=== PATIENT | male | born 2000 | race American Indian/Alaskan Native ===

== ENCOUNTER 2020-09-13 19:11 | Emergency (ER) | payer MEDICAID, OTHER ==
[2020-09-13] MEDS ORDERED: ACETAMINOPHEN 325 MG TAB PO ONE (23:22)
--- NOTE | 2020-09-13 23:53 | XRay Report ---
LEFT HUMERUS 3 VIEWS INDICATION / CLINICAL INFORMATION: laceration to L upper arm COMPARISON: None available. FINDINGS: BONES and JOINT(S): No acute fracture or subluxation. No significant arthritis. SOFT TISSUES: No distinct laceration or other significant abnormalities. ADDITIONAL FINDINGS: None. IMPRESSION: 1. No acute findings. Signer Name: Desmond Christine MD Signed: 09/13/2020 11:49 PM Workstation Name: [id number]
[2020-09-14 01:25] VITALS: BP 153/91
[2020-09-14] MEDS ORDERED: IBUPROFEN 600 MG TAB PO ONE (01:51)
[2020-09-14] MEDS ORDERED: HYDROcodone/ACETAMINOPHEN 5-325 MG TAB PO ONE (01:51)
[2020-09-14] MEDS ORDERED: ONDANSETRON 4 MG ODT TAB PO ONE (01:51)
[2020-09-14] MEDS ORDERED: LIDOCAINE-MPF (1%) 10 MG/1 ML VIAL 5 ML INFILTRATI ONE (01:51)
--- NOTE | 2020-09-14 02:33 | Emergency Department Report ---
ED Upper Extremity Inj HPI - General Chief Complaint: Wound/Laceration Stated Complaint: LARGE LAC TO ARM Source: patient Mode of arrival: Ambulatory Limitations: No Limitations - History of Present Illness Initial Comments: Patient is a 19-year-old -[place] male with past medical history of asthma who presents to the ED with complaint of acute onset persistent painful left upper arm bleeding puncture wound after a piece of glass punctured his left upper arm when moving some objects, and when he forgot and hit his left upper arm against the sharp edge of the glass about 6 hours ago. Patient states that the pain and bleeding has been persistent and intermittent. Patient states that the bleeding is not well controlled but the pain has been persistent leading to numbness and tingling of left arm. Patient states that he is up-to-date with all his tetanus vaccinations. Patient denies dizziness, syncope, fall, neck pain, chest pain, shortness of breath, headache, nausea and vomiting or back pain. MD Complaint: Injury to:: left, arm (Left upper arm puncture wound) -: Sudden, hour(s) (6) Other Extremity Injury: Arm: Left (Left upper arm bleeding painful puncture wound) Other Injuries: none Place: home Severity scale (0 -10): 7 Improves With: none Worsens With: movement of extremity Context: direct blow, laceration, injury Associated Symptoms: denies other symptoms. denies: weakness, numbness, neck pain, suspects foreign body, nausea/vomiting, heard/felt popping sensat - Related Data Previous Rx's Medication Instructions Recorded Last Taken Type Ibuprofen [Motrin] 800 mg PO Q8HR PRN #30 tablet 09/14/20 Unknown Rx cephALEXin [Keflex] 500 mg PO Q8HR #30 cap 09/14/20 Unknown Rx Allergies Allergy/AdvReac Type Severity Reaction Status Date / Time No Known Allergies Allergy Unverified 09/13/20 23:15 ED Review of Systems ROS: Stated complaint: LARGE LAC TO ARM Other details as noted in HPI Constitutional: denies: chills, fever Eyes: denies: eye pain, eye discharge, vision change ENT: denies: ear pain, throat pain Respiratory: denies: cough, shortness of breath, wheezing Cardiovascular: denies: chest pain, palpitations Endocrine: no symptoms reported Gastrointestinal: denies: abdominal pain, nausea, diarrhea Genitourinary: denies: urgency, dysuria Musculoskeletal: arthralgia (Left upper arm pain due to bleeding puncture wound). denies: back pain, joint swelling Skin: other (Bleeding puncture wound on left upper arm). denies: rash, lesions Neurological: denies: headache, weakness, paresthesias Psychiatric: denies: anxiety, depression Hematological/Lymphatic: denies: easy bleeding, easy bruising ED Past Medical Hx - Past Medical History Previous Medical History?: Yes Hx Hypertension: Yes Hx Asthma: Yes - Surgical History Past Surgical History?: No - Social History Smoking Status: Current Every Day Smoker Substance Use Type: Marijuana - Medications Home Medications: Home Medications Medication Instructions Recorded Confirmed Last Taken Type Ibuprofen [Motrin] 800 mg PO Q8HR PRN #30 tablet 09/14/20 Unknown Rx cephALEXin [Keflex] 500 mg PO Q8HR #30 cap 09/14/20 Unknown Rx ED Physical Exam - General Limitations: No Limitations General appearance: alert, in no apparent distress - Head Head exam: Present: atraumatic, normocephalic, normal inspection - Eye Eye exam: Present: normal appearance, PERRL, EOMI Pupils: Present: normal accommodation - ENT ENT exam: Present: normal exam, normal orophraynx, mucous membranes moist, TM's normal bilaterally, normal external ear exam - Neck Neck exam: Present: normal inspection, full ROM - Respiratory Respiratory exam: Present: normal lung sounds bilaterally. Absent: respiratory distress, wheezes, rales, rhonchi, stridor, chest wall tenderness, accessory muscle use, decreased breath sounds, prolonged expiratory - Cardiovascular Cardiovascular Exam: Present: regular rate, normal rhythm, normal heart sounds. Absent: systolic murmur, diastolic murmur, rubs, gallop - GI/Abdominal GI/Abdominal exam: Present: soft, normal bowel sounds. Absent: tenderness, guarding, rebound, hyperactive bowel sounds, hypoactive bowel sounds, organomegaly - Extremities Exam Extremities exam: Present: full ROM, tenderness (Palpable left upper arm localized tenderness due to bleeding 3 cm laceration wound), normal capillary refill. Absent: pedal edema, joint swelling, calf tenderness - Back Exam Back exam: Present: normal inspection, full ROM. Absent: tenderness, CVA tenderness (R), muscle spasm, paraspinal tenderness, vertebral tenderness - Neurological Exam Neurological exam: Present: alert, oriented X3, CN II-XII intact, normal gait, reflexes normal - Psychiatric Psychiatric exam: Present: normal affect, normal mood - Skin Skin exam: Present: warm, dry, intact, normal color, other (Bleeding 3 cm laceration wound on left upper arm). Absent: rash ED Course Vital Signs 09/13/20 09/13/20 23:16 23:26 Temperature 98.7 F Pulse Rate 91 H Respiratory 18 18 Rate Blood Pressure 153/91 O2 Sat by Pulse 98 Oximetry - Laceration /Wound Repair Left Upper Lateral Arm Wound Location: upper extremity (Left lateral upper arm laceration) Wound Length (cm): 3 Wound's Depth, Shape: superficial, linear Wound Explored: contaminated Irrigated w/ Saline (ccs): 200 Betadine Prep?: Yes Anesthesia: 1% Lidocaine Volume Anesthetic (ccs): 5 Wound Debrided: extensive Wound Repaired With: sutures Suture Size/Type: 3:0, proline Number of Sutures: 7 Layer Closure?: No Sterile Dressing Applied?: Yes Progress: The wound was cleaned thoroughly with normal saline and Betadine solutions. The area was anesthetized with lidocaine 1% solution, a total of 5 cc was used to infiltrate the area. When anesthesia was fully achieved, the wound was appr oximated and sutured per protocol using Prolene 3-0 sutures and the patient tolerated procedure well. The wound was then dressed appropriately and the patient will discharge home on pain medication and prophylactic antibiotics. ED Medical Decision Making - Radiology Data Radiology results: report reviewed, image reviewed [facility] [address] [place] [address] XRay Report Signed Patient: DEN ROMERO MR#: [id number] : 2000 Acct:[id number] Age/Sex: 19 / M ADM Date: 09/13/20 Loc: ED Attending Dr: Ordering Physician: IVAN MUNOZ MD Date of Service: 09/13/20 Procedure(s): XR humerus 2+V LT Accession Number(s): [id number] cc: IVAN MUNOZ MD Fluoro Time In Minutes: LEFT HUMERUS 3 VIEWS INDICATION / CLINICAL INFORMATION: laceration to L upper arm COMPARISON: None available. FINDINGS: BONES and JOINT(S): No acute fracture or subluxation. No significant arthritis. SOFT TISSUES: No distinct laceration or other significant abnormalities. ADDITIONAL FINDINGS: None. IMPRESSION: 1. No acute findings. Signer Name: Desmond Christine MD Signed: 09/13/2020 11:49 PM Workstation Name: [id number] Transcribed By: [place] Dictated By: Desmond Christine MD Electronically Authenticated By: Desmond Christine MD Signed Date/Time: 09/13/202348 DD/ 47 TD/TT: - Medical Decision Making This is a 19-year-old -[place] male with past medical history of asthma who presents to the ED with complaint of acute onset persistent painful left upper arm bleeding puncture wound after a piece of glass punctured his left upper arm when moving some objects, and when he forgot and hit his left upper arm against the sharp edge of the glass about 6 hours ago. Patient states that the pain and bleeding has been persistent and intermittent. Patient states that the bleeding is not well controlled but the pain has been persistent leading to numbness and tingling of left arm. Patient states that he is up-to-date with all his tetanus vaccinations. In the ED, patient is alert and oriented x3 and is not in any distress. Patient was treated for pain in the ED. Left humerus x-ray showed no acute fractures or subluxation or presence of any foreign bodies in the tissues of the left upper arm. The left upper arm laceration wound was cleaned thoroughly and sutured per protocol. Patient tolerated procedure well. The wound was then dressed appropriately and the patient will discharge home on pain medications and prophylactic antibiotics and advised to follow-up with his primary care physician in 7 to 10 days for reevaluation. Patient is advised return to the ED immediately if symptoms get worse. Patient was also advised to return to the ED in 12 to 14 days for suture removal. - Differential Diagnosis Humerus fracture; puncture wound; laceration; abrasion; arm contusion Critical care attestation.: If time is entered above; I have spent that time in minutes in the direct care of this critically ill patient, excluding procedure time. ED Disposition Clinical Impression: Laceration of left upper arm without foreign body Qualifiers: Encounter type: initial encounter Qualified Code(s): S41.112A - Laceration without foreign body of left upper arm, initial encounter Disposition: - TO HOME OR SELFCARE Is pt being admited?: No Does the pt Need Aspirin: No Condition: Stable Instructions: Sutured Wound Care, [id number], Laceration Care, Adult, [id number] Additional Instructions: The left humerus x-ray showed no acute fractures, foreign bodies or subluxations. Therefore take pain medication and antibiotics with food, drink plenty of fluids, follow-up with your primary care physician in 7 to 10 days for reevaluation. Return to the ED immediately if your symptoms get worse. Otherwise return to the ED or to your primary care physician in 12 to 14 days for suture removal. Prescriptions: cephALEXin [Keflex] 500 mg PO Q8HR #30 cap Ibuprofen [Motrin] 800 mg PO Q8HR PRN #30 tablet PRN Reason: Pain , Severe (7-10) Referrals: [facility] [Provider Group] - 7-10 days Time of Disposition: 02:35 Print Language: ALBANIAN
== END 2020-09-14 03:14 | disposition home or self-care (01) ==
LOC: ED 19:11
DX: S41.112A Laceration without foreign body of left upper arm, initial encounter (principal); I10 Essential (primary) hypertension; J45.909 Unspecified asthma, uncomplicated; F17.290 Nicotine dependence, other tobacco product, uncomplicated; W22.8XXA Striking against or struck by other objects, initial encounter; Y93.89 Activity, other specified; Y92.89 Other specified places as the place of occurrence of the external cause; Y99.8 Other external cause status
CPT/HCPCS: 99283; Q0162